=== PATIENT | male | born 2000 ===

== ENCOUNTER 2021-11-16 19:49 | Emergency (ER) | payer OTHER ==
[~2021-11-16] VITALS: Ht 185.4 cm; Wt 84.1 kg
[2021-11-16] MEDS ORDERED: CefTRIAXone SODIUM 1 GM/VIAL IM ONE (20:45)
[2021-11-16] MEDS ORDERED: LIDOCAINE/PF 1% 2 ML VIAL IM ONE (20:45)
[2021-11-16] MEDS ORDERED: ACYC-138 PO (21:28)
[2021-11-16] MEDS ORDERED: DOXY50 PO (21:28)
[2021-11-16 21:39] VITALS: BP 119/63
== END 2021-11-16 21:52 | disposition home or self-care (01) ==
LOC: EMS 19:56
DX: B00.9 Herpesviral infection, unspecified (principal); N34.2 Other urethritis; F17.210 Nicotine dependence, cigarettes, uncomplicated
CPT/HCPCS: 87255; 87491; 87591; 96372; 99283; J0696; J3490